=== PATIENT | female | born 1985 | race Caucasian/White ===

== ENCOUNTER 2017-04-17 14:44 | Emergency (ER) | payer BC ==
[~2017-04-17] VITALS: Ht 175.3 cm; Wt 113.6 kg
[~2017-04-17 14:44] MED LIST: BCP TD; CEFTIN250 MG PO; DAZIDOX10 MG PO; LORTAB 5/500 501 TAB PO; NO HOME MEDICATIONS; OXYCONTIN 10MG10 MG PO; PERCOCET 325 MG1 TA2 PO; PRILOSEC 20MG20 MG PO; VALIUM 5MG T5 MG/TAB PO; ZANAFLEX 4MG TAB4 MG PO
[2017-04-17 14:58] VITALS: BP 123/80; PULSE 75; TEMP 98.2
== END 2017-04-17 16:10 | disposition home or self-care (01) ==
LOC: COL.ER 14:44
DX: S83.92XA Sprain of unspecified site of left knee, initial encounter (principal); W19.XXXA Unspecified fall, initial encounter

== ENCOUNTER → 2017-05-24 | Outpatient (REF) | LOC: ZLAB.WCH 08:38 | DX: Z01.89 Encounter for other specified special examinations (principal) ==

== ENCOUNTER 2017-09-19 00:46 | Emergency (ER) | payer BC ==
[~2017-09-19] VITALS: Ht 175.3 cm; Wt 112.7 kg
[2017-09-19 01:01] VITALS: BP 136/84; TEMP 99.9
[2017-09-19] MEDS ORDERED: PERCOCET 325 MG1 TA2 PO (01:43)
[2017-09-19 01:57] VITALS: PULSE 90
== END 2017-09-19 01:57 | disposition home or self-care (01) ==
LOC: COL.ER 00:46
DX: O9A.311 Physical abuse complicating pregnancy, first trimester (principal); S10.93XA Contusion of unspecified part of neck, initial encounter; O99.611 Diseases of the digestive system complicating pregnancy, first trimester; K21.9 Gastro-esophageal reflux disease without esophagitis; O26.891 Other specified pregnancy related conditions, first trimester; M54.9 Dorsalgia, unspecified; G89.29 Other chronic pain; Z3A.10 10 weeks gestation of pregnancy; Y04.8XXA Assault by other bodily force, initial encounter

== ENCOUNTER 2018-04-16 16:42 | Outpatient (CLI) | payer MEDICAID ==
[~2018-04-16] VITALS: Ht 172.7 cm; Wt 119.5 kg
[2018-04-16 17:06] VITALS: PULSE 88; TEMP 98.6
[2018-04-16 18:03] VITALS: BP 132/68; PULSE 84; TEMP 98.1
[2018-04-16] MEDS ORDERED: OSCAL 500 TAB500 MG PO (18:07)
[2018-04-16] MEDS ORDERED: NASONEX SPRAY17 GM (18:08)
[2018-04-16] MEDS ORDERED: ROBAXIN 50500 MG/TAB PO (18:08)
[2018-04-16] MEDS ORDERED: DAZIDOX10 MG PO (18:08)
[2018-04-16] MEDS ORDERED: UNISOM25 MG PO (18:09)
[2018-04-16] MEDS ORDERED: PRENATAL MVI (18:09)
== END 2018-04-16 17:55 | disposition home or self-care (01) ==
LOC: LDRO 16:42
DX: O71.89 Other specified obstetric trauma (principal); O36.8130 Decreased fetal movements, third trimester, not applicable or unspecified; W10.9XXA Fall (on) (from) unspecified stairs and steps, initial encounter; Z3A.39 39 weeks gestation of pregnancy

== ENCOUNTER 2018-04-16 18:00 | Emergency (ER) | payer MEDICAID ==
[~2018-04-16] VITALS: Ht 172.7 cm; Wt 119.5 kg
[2018-04-16] MEDS ORDERED: OSCAL 500 TAB500 MG PO (18:07)
[2018-04-16 18:08] VITALS: BP 144/85; TEMP 97.2
[2018-04-16] MEDS ORDERED: DAZIDOX10 MG PO (18:08)
[2018-04-16] MEDS ORDERED: ROBAXIN 50500 MG/TAB PO (18:08)
[2018-04-16] MEDS ORDERED: NASONEX SPRAY17 GM (18:08)
[2018-04-16] MEDS ORDERED: PRENATAL MVI (18:09)
[2018-04-16] MEDS ORDERED: UNISOM25 MG PO (18:09)
[2018-04-16 20:00] VITALS: PULSE 88
== END 2018-04-16 20:00 | disposition home or self-care (01) ==
LOC: COL.ER 18:00
DX: O9A.213 Injury, poisoning and certain other consequences of external causes complicating pregnancy, third trimester (principal); S39.012A Strain of muscle, fascia and tendon of lower back, initial encounter; Z3A.40 40 weeks gestation of pregnancy; Z79.51 Long term (current) use of inhaled steroids; W18.30XA Fall on same level, unspecified, initial encounter
CPT/HCPCS: J1170

== ENCOUNTER 2018-04-18 16:38 | Inpatient (IN) | payer MEDICAID ==
[2018-04-18] VITALS (14 sets, daily range): BP systolic 122–177; BP diastolic 71–109; PULSE 71–96; TEMP 97.7
[~2018-04-18] VITALS: Ht 172.7 cm; Wt 119.5 kg
[~2018-04-18 16:38] MED LIST changes: +NASONEX SPRAY17 GM; +OSCAL 500 TAB500 MG PO; +PRENATAL MVI; +ROBAXIN 50500 MG/TAB PO; +UNISOM25 MG PO
[2018-04-18 18:22] LABS: HEMATOCRIT 38.1 % (37.0-47.0); HEMOGLOBIN 13.1 g/dl (12.5-16.0); MEAN CELL VOLUME 81 fl (80.0-100.0); MEAN CORPUSCULAR HEMOGLOBIN 28 pg (27.0-31.0); MEAN CORPUSCULAR HGB CONC 34 g/dl (33.0-37.0); MEAN PLATELET VOLUME 10.1 fl (7.4-10.4); PLATELET COUNT 299 K/mm3 (130-400); RED BLOOD COUNT 4.73 M/mm3 (4.10-5.30); REDCELL DISTRIBUTION WIDTH-CV 13.4 % (11.5-14.5)
[2018-04-18 18:27] LABS: COLLECTION METHOD CLEAN CATCH
[2018-04-18 18:28] LABS: ALBUMIN 3.3 gm/dL (3.5-5.0); BILIRUBIN,TOTAL 0.5 mg/dL (0.0-1.0); CALCIUM 9.5 mg/dL (8.4-10.2); CREATININE, serum 0.64 mg/dL (0.52-1.25); TOTAL PROTEIN 6.8 gm/dL (6.4-8.2)
[2018-04-18 18:33] LABS: MUCOUS Present /lpf; PH 6 (5-8); URINE APPEARANCE Clear; URINE BACTERIA None Seen /hpf; URINE BILIRUBIN Negative (NEGATIVE); URINE BLOOD 2+ (NEGATIVE); URINE COLOR Yellow; URINE GLUCOSE Negative (NEGATIVE); URINE KETONE Negative (NEGATIVE); URINE LEUKOCYTE ESTERASE Trace (NEGATIVE); URINE NITRATE Negative (NEGATIVE); URINE PROTEIN(semi-quant) Negative (NEGATIVE); URINE RBC 0-2 /hpf; URINE UROBILINOGEN Negative (NEGATIVE)
[2018-04-19] VITALS (29 sets, daily range): BP systolic 114–159; BP diastolic 63–102; PULSE 72–127; TEMP 97.7–99.7
[2018-04-20 01:04] VITALS: BP 130/72; PULSE 44; TEMP 98
[2018-04-20 07:05] VITALS: BP 117/71; PULSE 86; TEMP 98.1
[2018-04-20 16:45] VITALS: BP 112/57; PULSE 96; TEMP 97.8
[2018-04-20 20:14] VITALS: BP 129/77; PULSE 88; TEMP 97.7
[2018-04-21] MEDS ORDERED: MOTRIN 800800 MG/TAB PO (07:46)
[2018-04-21] MEDS ORDERED: LEXAPRO 10MG10 MG PO (07:47)
[2018-04-21] MEDS ORDERED: PERCOCET 325 MG1 TA2 PO (07:47)
[2018-04-21 09:37] VITALS: BP 121/77; PULSE 82
== END 2018-04-21 09:35 | disposition home or self-care (01) | DRG 765 ==
LOC: LDRO 16:38 → LDR 18:33 → OB 18:33
PROVIDERS: Obstetrics & Gynecology
PROC: 10D00Z1 Extraction of Products of Conception, Low, Open Approach (ICD-10-PCS; principal; 2018-04-19)
DX: O76 Abnormality in fetal heart rate and rhythm complicating labor and delivery (principal); F11.20 Opioid dependence, uncomplicated; O99.323 Drug use complicating pregnancy, third trimester; O13.4 Gestational [pregnancy-induced] hypertension without significant proteinuria, complicating childbirth; J45.909 Unspecified asthma, uncomplicated; O99.52 Diseases of the respiratory system complicating childbirth; O99.213 Obesity complicating pregnancy, third trimester; E66.9 Obesity, unspecified; M54.30 Sciatica, unspecified side; O26.893 Other specified pregnancy related conditions, third trimester; M19.90 Unspecified osteoarthritis, unspecified site; O99.824 Streptococcus B carrier state complicating childbirth; Z37.0 Single live birth; Z3A.40 40 weeks gestation of pregnancy
CPT/HCPCS: J0690; J1885; J2270; J2370; J2400; J2405; J2540; J2550; J2590; J2795; J3010; J7120

== ENCOUNTER → 2018-07-27 | Outpatient (CLI) | payer MEDICAID ==
[~2018-07-27] MED LIST changes: +LEXAPRO 10MG10 MG PO; +MOTRIN 800800 MG/TAB PO
== END ==
LOC: COL.RAD 14:34
DX: M51.37 Other intervertebral disc degeneration, lumbosacral region (principal)

== ENCOUNTER 2018-09-26 10:40 | Emergency (ER) | payer MEDICAID ==
[~2018-09-26] VITALS: Ht 175.3 cm; Wt 118.2 kg
[2018-09-26 10:46] VITALS: BP 130/71; TEMP 97.9
[2018-09-26 11:34] LABS: COLLECTION METHOD CLEAN CATCH
[2018-09-26 11:42] LABS: MUCOUS Present /lpf; PH 8 (5-8); URINE APPEARANCE Hazy; URINE BACTERIA Rare /hpf; URINE BILIRUBIN Negative (NEGATIVE); URINE BLOOD Negative (NEGATIVE); URINE COLOR Yellow; URINE GLUCOSE Negative (NEGATIVE); URINE KETONE Negative (NEGATIVE); URINE LEUKOCYTE ESTERASE Trace (NEGATIVE); URINE NITRATE Negative (NEGATIVE); URINE PROTEIN(semi-quant) Negative (NEGATIVE); URINE RBC 0-2 /hpf; URINE UROBILINOGEN Negative (NEGATIVE)
[2018-09-26] MEDS ORDERED: LIDODERM 5% PATC1 EA TP (11:56)
[2018-09-26 12:49] VITALS: PULSE 70
== END 2018-09-26 12:51 | disposition home or self-care (01) ==
LOC: COL.ER 10:40
PROVIDERS: Physician Assistant
DX: M54.5 Low back pain (principal); Z88.5 Allergy status to narcotic agent
CPT/HCPCS: J1170; J2550

== ENCOUNTER 2019-03-21 19:47 | Emergency (ER) | payer MEDICAID ==
[~2019-03-21] VITALS: Ht 172.7 cm; Wt 122.7 kg
[~2019-03-21 19:47] MED LIST changes: +LIDODERM 5% PATC1 EA TP
[2019-03-21 19:59] VITALS: BP 137/64; PULSE 77; TEMP 97.4
== END 2019-03-21 21:30 | disposition left against medical advice (07) ==
LOC: COL.ER 19:47
DX: R10.9 Unspecified abdominal pain (principal)

== ENCOUNTER 2024-07-05 20:07 | Observation (INO) | payer MEDICAID ==
[~2024-07-05] VITALS: Ht 172.7 cm; Wt 154.5 kg
[~2024-07-05 20:07] MED LIST changes: -NASONEX SPRAY17 GM; +NASONEX SPRAY17 GM INH
[2024-07-05 21:00] VITALS: BP_SYST 189
[2024-07-05 21:13] VITALS: BP 189/115; PULSE 69; TEMP 97.8
[2024-07-05] MEDS ORDERED: PRILOSEC 20MG20 MG PO (21:18)
[2024-07-05] MEDS ORDERED: ZOFRAN ODT4 MG PO (21:18)
--- NOTE | 2024-07-05 21:31 | NUR ---
pt arrived to room 342 via EMS at 2109. pt ambulated to bed without issue. pt reporting some RUQ abd pain that "comes and goes". pt alert and oriented x4. pt INT to right hand IV. admission, physical assessment, and med rec complete. pt resting in bed with mom at bedside. call light in reach. all needs met at this time.
[2024-07-05] MEDS ORDERED: hydrALAZINE 20 MG/ML 1 ML VIAL IV PRN (21:45)
[2024-07-05] MEDS ORDERED: HYDROmorphone 0.5 MG/0.5 ML SYRINGE IV PRN (22:00)
[2024-07-05] MEDS ORDERED: Ondansetron 4 MG/2 ML VIAL IV PRN (22:00)
[2024-07-05] MEDS ORDERED: LR 1,000 ML IV SCH (22:00)
[2024-07-05] MEDS ORDERED: Ketorolac 30 MG/ML VIAL IV PRN (22:00)
[2024-07-05] MEDS ORDERED: PROCARDIA XL 3030 MG PO (22:10)
--- NOTE | 2024-07-05 22:26 | NUR ---
pt reporting 7/10 RUQ abd pain, prn dilaudid administered per orders. PRN hydralazine administered per orders for 183/115 BP. pt tolerated well.
[2024-07-05] MEDS ORDERED: Lisinopril 20 MG TAB PO SCH (22:30)
[2024-07-05 23:33] VITALS: BP 158/88; PULSE 68; TEMP 97.8
[2024-07-06] VITALS (15 sets, daily range): BP systolic 144–176; BP diastolic 76–90; PULSE 65–95; TEMP 68–99.3
--- NOTE | 2024-07-06 02:26 | NUR ---
pt ambulated to bathroom ind and is now c/o 06/07 RUQ abd pain, prn dilaudid administered per orders.
--- NOTE | 2024-07-06 05:07 | NUR ---
pt reporting 6/10 RUQ abd pain, prn dilaudid administered per orders. pt also reporting nausea, prn zofran administered per orders.
[2024-07-06] MEDS ORDERED: fentaNYL 50 MCG/ML 5 ML VIAL ONE (07:02)
[2024-07-06] MEDS ORDERED: Lidocaine PF 2% (20 MG/ML) 5 ML VIAL ONE ×2 (07:02→08:03)
[2024-07-06] MEDS ORDERED: Succinylcholine PF 200 MG/10 ML SYRINGE IV ONE (07:02)
[2024-07-06] MEDS ORDERED: Rocuronium 50 MG/5 ML Multi-Dose VIAL ONE (07:02)
[2024-07-06] MEDS ORDERED: Glycopyrrolate 0.2 MG/ML 1 ML VIAL ONE (07:30)
[2024-07-06] MEDS ORDERED: Labetalol 100 MG/20 ML Multi-Dose VIAL ONE (07:31)
[2024-07-06] MEDS ORDERED: Ondansetron 4 MG/2 ML VIAL ONE (07:31)
[2024-07-06] MEDS ORDERED: dexAMETHasone 10 MG/ML VIAL ONE (07:31)
[2024-07-06] MEDS ORDERED: Ketorolac 30 MG/ML VIAL ONE (07:48)
[2024-07-06] MEDS ORDERED: Meperidine 50 MG/ML 1 ML VIAL IV PRN (08:00)
[2024-07-06] MEDS ORDERED: Ondansetron 4 MG/2 ML VIAL IV PRN (08:00)
[2024-07-06] MEDS ORDERED: hydrALAZINE 20 MG/ML 1 ML VIAL IV PRN (08:00)
[2024-07-06] MEDS ORDERED: fentaNYL 50 MCG/ML 1 ML SYRINGE/VIAL [PACU/SDC ONLY] IV PRN (08:00)
[2024-07-06] MEDS ORDERED: HYDROmorphone 1 MG/1 ML SYRINGE [PACU/SDC ONLY] IV PRN (08:00)
[2024-07-06] MEDS ORDERED: fentaNYL 50 MCG/ML 2 ML VIAL ONE (08:21)
[2024-07-06] MEDS ORDERED: oxyCODONE/Acetaminophen 5-325 MG TAB PO PRN (10:45)
--- NOTE | 2024-07-06 15:54 | NUR ---
Elementary Secretary met with patient to discuss discharge planning. Patient appeared to be uncomfortable and had her eyes closed. SW asked patient if she would prefer SW to come back at a later time and patient requested SW gather intake information from her mother, Erin (ph#[phone]) who is at bedside. Patient lives in [place] with her , Bao and their young child. Patient sees Dr. Ashraf for primary care and gets medications from [facility]. Patient does not use any DME and is independent with ADLS. Patient does not have DPOA-HC and does not wish to complete one at this time. Discharge Plan; Home
--- NOTE | 2024-07-06 19:18 | NUR ---
PT MEDICATED WITH DILAUDID 0.5MG IVP FOR PAIN TO ABD AFTER USING THE BATHROOM ALSO HAVING NAUSEA/DRY HEAVES, MEDICATED WITH ZOFRAN 4MG IVP. IV TO RT HAND WITH IVF INFUSING WITHOUT PROBLEM. LAP SITES X4 WITH BANDAIDS.
--- NOTE | 2024-07-06 22:02 | NUR ---
PT MEDICATED WITH DILAUDID 0.5MG IVP FOR ABD PAIN. ALSO REPORTS HEADACHE, PERCOCET GIVEN. GIVEN SNACK OF JELLO AND CRACKERS.
--- NOTE | 2024-07-06 23:00 | NUR ---
PT UP TO BATHROOM, VOIDS AND THEN AMBULATES IN HALLWAY WITH STEADY GAIT. NO NAUSEA AT THIS TIME. BACK TO BED. THANKFUL TO STAFF.
[2024-07-07 00:08] VITALS: BP 156/87; PULSE 97; TEMP 99.6
[2024-07-07 00:28] VITALS: BP_SYST 156
--- NOTE | 2024-07-07 01:39 | NUR ---
PT HAVING PAIN TO ABD, PERCOCET GIVEN.
--- NOTE | 2024-07-07 02:12 | NUR ---
PT STILL HAVING ABD PAIN, TORADOL 30MG IVP AND PERCOCET REPEATED.
[2024-07-07 03:49] VITALS: BP 153/95; PULSE 91; TEMP 99.6
[2024-07-07 04:56] VITALS: BP_SYST 153
[2024-07-07] MEDS ORDERED: PERCOCET 325 MG1 TA2 PO (07:22)
--- NOTE | 2024-07-07 07:55 | NUR ---
Pt. sitting up in bed. Pt. is A&OX3, assessment complete. INT to lt. forearm patent. Pt. rated pain at a 6 on pain scale to abd. Gave pain meds per orders. Pt. denies further needs, call light within reach.
[2024-07-07 08:00] VITALS: BP 155/75; PULSE 106; TEMP 98.1
[2024-07-07] MEDS ORDERED: ZESTRIL 20MG TA20 MG PO (08:24)
[2024-07-07 09:00] VITALS: BP_SYST 155
--- NOTE | 2024-07-07 10:00 | NUR ---
Pt. has met discharge criteria. INT discontinued from rt. hand. Reviewed and gave discharge paperwork to the pt. Pt. voices understanding. Pt. escorted out by wheelchair.
== END 2024-07-07 10:00 | disposition home or self-care (01) ==
LOC: SURG 20:07
PROVIDERS: ADMIT Surgery
DX: K35.80 Unspecified acute appendicitis (principal); Z87.891 Personal history of nicotine dependence; I10 Essential (primary) hypertension; E66.01 Morbid (severe) obesity due to excess calories
CPT/HCPCS: G0378; G0379; J0360; J0780; J1100; J1170; J1885; J1920; J2405; J2543; J2704; J3010; J7120